=== PATIENT | female | born 1995 | race Hispanic/Latino ===

== ENCOUNTER 2023-06-17 00:53 | Emergency (ER) | payer OTHER ==
[~2023-06-17] VITALS: Ht 157.5 cm; Wt 73.9 kg
[2023-06-17] MEDS: KETOROLAC 30MG VIAL (30MG/ML) IM ONE (02:59)
[2023-06-17] MEDS: ORPHENADRINE CITRATE 30 MG/ML ML IM STA (03:03)
[2023-06-17 03:27] VITALS: BP 145/95; PULSE 74; RESP 18
[2023-06-17] MEDS ORDERED: NAPR-1084 PO (04:08)
[2023-06-17] MEDS ORDERED: METH-662 PO (04:08)
== END 2023-06-17 04:17 | disposition home or self-care (01) ==
LOC: EDH 00:53
DX: M62.830 Muscle spasm of back (principal); M41.9 Scoliosis, unspecified
CPT/HCPCS: 99284; 81025; 72072; 96372 ×2; J1885; J2360